=== PATIENT | male | born 1965 | race Two or more races ===

== ENCOUNTER 2016-10-09 05:02 | Inpatient (IN) | payer OTHER ==
[~2016-10-09] VITALS: Ht 182.9 cm; Wt 125.2 kg
[~2016-10-09 05:02] MED LIST: APIX5TAB PO; HYDR-3025 PO; Hydrocodone/Apap (10/325) PO
[2016-10-09] MEDS ORDERED: ASPIRIN 325 MG TAB PO STA (05:17)
[2016-10-09 06:15] LABS: BASOPHIL # 0.1 10^3/ul (0.0-0.1); BASOPHILS % 0.5 % (0.0-2.0); EOSINOPHILS # 0.2 10^3/ul (0.0-0.5); EOSINOPHILS % 2.6 % (0.0-7.0); HEMATOCRIT 42.4 % (42.0-52.0); HEMOGLOBIN 14.5 g/dl (14.0-18.0); LYMPHOCYTES # 2.2 10^3/ul (0.8-2.9); LYMPHOCYTES % 24.1 % (15.0-51.0); MEAN CORPUSCULAR HEMOGLOBIN 31.1 pg (29.0-33.0); MEAN CORPUSCULAR HGB CONC 34.2 g/dl (32.0-37.0); MEAN PLATELET VOLUME 10.2 fl (7.4-10.4); MONOCYTE # 0.8 10^3/ul (0.3-0.9); NEUTROPHIL # 5.8 10^3/ul (1.6-7.5); NEUTROPHILS % 63.4 % (39.0-77.0); PLATELET COUNT 233 10^3/UL (140-415); RED BLOOD COUNT 4.66 10^6/ul (4.70-6.10); RED CELL DISTRIBUTION WIDTH 12.1 % (11.5-14.5); WHITE BLOOD COUNT 9.1 10^3/ul (4.8-10.8)
[2016-10-09] MEDS ORDERED: ONDANSETRON 4 MG INJ IV STA ×2 (06:27→08:20)
[2016-10-09] MEDS ORDERED: HYDROmorphONE 1 MG/ML SYG IV STA ×3 (06:27→11:35)
[2016-10-09 06:34] LABS: INR 0.85; PARTIAL THROMBOPLASTIN TIME 27.5 Sec (25.0-35.0); PROTIME 11.6 Sec (12.2-14.2); PT RATIO 0.9
[2016-10-09 06:36] LABS: ANION GAP 15 (8-16); BLOOD UREA NITROGEN 21 mg/dl (7-20); CALCIUM 9.4 mg/dl (8.4-10.2); CARBON DIOXIDE 21 mmol/L (21-31); CHLORIDE 105 mmol/L (97-110); CREATININE 0.84 mg/dl (0.61-1.24); GLUCOSE 100 mg/dl (70-220); POTASSIUM 4.3 mmol/L (3.5-5.1); SODIUM 137 mmol/L (135-144)
[2016-10-09 06:48] LABS: B-TYPE NATRIURETIC PEPTIDE 39 PG/ML (0-125)
[2016-10-09 06:50] LABS: TROPONIN-I < 0.012 ng/ml (0.00-0.12)
[2016-10-09 06:52] VITALS: TEMP 98.1
[2016-10-09] MEDS ORDERED: IOHEXOL 100 ML ONE (07:21)
[2016-10-09] MEDS ORDERED: SOD CHLORIDE 0.9% 100 ML ONE (07:21)
--- NOTE | 2016-10-09 07:29 | RADRPT ---
PROCEDURE: US Lower extremity Venous. CLINICAL INDICATION: Right leg edema , history of DVT, shortness of breath, pulmonary embolus TECHNIQUE: Multiple sonographic images of the right lower extremity deep venous system was obtaine d utilizing grayscale, color-flow, compressive sonography and doppler imaging with augmentation. Th e images were reviewed on a PACS workstation. COMPARISON: None. FINDINGS: The right popliteal vein is not compressible, consistent with thrombosis. There is normal compressibility and flow within the right common femoral, femoral, posterior tibial, peroneal veins. RPTAT: AA IMPRESSION: Thrombosis of the right popliteal vein. .Chris Doherty MD, MD Date Time Electronically viewed and signed by .Chris Doherty MD, on 10/09/2016 07:29 .S/
[2016-10-09] MEDS ORDERED: ENOXAPARIN 60 MG/0.6 ML SYG SC ONE (07:30)
--- NOTE | 2016-10-09 07:56 | RADRPT ---
PROCEDURE: CTA Chest and pulmonary angiogram. CLINICAL INDICATION: Chest pain and shortness of breath. TECHNIQUE: CT scan of the chest and CT pulmonary angiogram was performed on a multidetector high-r esolution CT scanner. High-resolution thin slice coronal and sagittal imaging was obtained from the axial source images. 3-D volumetric rendered post processing was performed as well. The patient w as examined following the uncomplicated intravenous administration of 100 cc of Omnipaque-350. The i mages were reviewed on a PACS workstation. The total exam CTDI equals 70.42, and 20.02 and the total exam DLP equals 776.33 mGy-cm. One or more of the following dose reduction techniques were used: Automated exposure control. Adjustment of the mA and/or kV according to patient size. Use of iterative reconstruction technique. COMPARISON: No prior studies are available for comparison. FINDINGS: CT chest: The lungs are clear. No focal opacification, effusion, pneumothorax, edema, or nodules are seen. T he central tracheobronchial tree is clear. The mediastinum is unremarkable without evidence for mass or lymphadenopathy. The vascular structur es of the mediastinum are normal in course and caliber. The heart size is normal without pericardia l thickening or effusion. The axillary, subpectoral, and supraclavicular regions are unremarkable. Imaging obtained through the upper abdomen is equally unremarkable. The adrenal glands are symmetri melida normal. The surrounding chest wall is unremarkable. The osseous structures are remarkable fo r degenerative spondylosis of the spine. CT pulmonary angiogram: Multiple foci of thrombus is seen in bilateral pulmonary arteries. There is no CT evidence of right heart strain. The pulmonary arteries are normal in caliber and morphology. A call report was made to Dr. Keen at 10/09/2016 7:51:50 AM following completion of the examination . IMPRESSION: 1. Pulmonary emboli within the lobar, segmental and subsegmental branches of bilateral pulmonary ar teries. No CT evidence of right heart strain. 2. No acute infiltrates. RPTAT: EE .Alma Zapata MD, MD Date Time Electronically viewed and signed by .Alma Zapata MD, on 10/09/2016 07:55 .O/
--- NOTE | 2016-10-09 08:17 | ERA ---
ER Documentation Chief Complaint Date/Time DATE: 10/09/16 TIME: 08:14 Chief Complaint shortness of breath , right leg pain HPI This 51-year-old male with a history of DVT and pulmonary embolism status post knee surgery last year. Patient states 4 days ago he started getting right calf pain again having some intermittent mild shortness of breath and heart palpitations over the course of the past 4 days no chest pain. The patient says he came in because he was worried that he has another clot in his leg because it feels the same. The patient was taking Eliquis and stopped taking it 3 months ago. Pain in the calf is described as sharp and worse with movement. No fever cough ROS All systems reviewed and are negative except as per history of present illness. Medications Home Meds Reported Medications Hydrocodone Bit-Acetaminophen* (Vicodin* ES) 7.5-300 Mg Tablet, 1 TAB PO Q4H Y for PAIN, TAB 01/06/16 Discontinued Scripts Apixaban* (Eliquis*) 5 Mg Tablet, 5 MG PO BID for 90 Days, TAB Prov:JUSTEN ANDREWS 01/07/16 Apixaban* (Eliquis*) 5 Mg Tablet, 10 MG PO BID for 7 Days, TAB Prov:JUSTEN ANDREWS 01/07/16 [Hydrocodone/Apap (10/325)] 1 TAB TAB No Conflict Check, 1 TAB PO Q4H Y for SEVERE PAIN LEVEL 7-10, #30 Prov:JUSTEN ANDREWS 01/07/16 Allergies Allergies: Coded Allergies: No Known Allergy (Unverified , 10/09/16) PMhx/Soc History of Surgery: Yes (R leg surgery ) Anesthesia Reaction: Yes Hx Neurological Disorder: Yes Hx Respiratory Disorders: No Hx Cardiac Disorders: Yes Hx Psychiatric Problems: No Hx Miscellaneous Medical Probl: No Hx Alcohol Use: No Hx Substance Use: No Hx Tobacco Use: No Smoking Status: Never smoker FmHx Family History: No coronary disease Physical Exam Vitals Vital Signs Date Time Temp Pulse Resp B/P Pulse Ox O2 Delivery O2 Flow Rate FiO2 10/09/16 06:52 98.1 66 20 132/84 100 Room Air 10/09/16 05:28 98.1 65 20 120/101 100 Room Air 10/09/16 05:06 98.7 78 20 140/75 96 Physical Exam Const: Well-developed, well-nourished Head: Atraumatic, normocephalic Eyes: Normal Conjunctiva, PERRLA, EOMI, normal sclera, no nystagmus ENT: Normal External Ears, Nose and Mouth, moist mucus membranes. Neck: Full range of motion. No meningismus, no lymphadenopathy. Resp: Clear to auscultation bilaterally, no wheezing, rhonchi, rales Cardio: Regular rate and rhythm, no murmurs, S1 S2 present Abd: Soft, non tender x 4, non distended. Normal bowel sounds, no guarding or rebound, no pulsitile abdominal masses or bruits Skin: No petechiae or rashes, no ecchymosis , no maculopapular rash Back: No midline or flank tenderness Ext: No cyanosis, or edema, FROM x 4, normal inspection, very tender right calf positive Homans neurovascularly intact x 4 Neur: Awake and alert, STR 5/5 x 4, sensation intact x 4, no focal findings, cerebellum intact Psych: Normal Mood and Affect Result Diagram: 10/09/16 0530 10/09/16 0530 Results 24 hrs Laboratory Tests Test 10/09/16 05:30 White Blood Count 9.110^3/ul Red Blood Count 4.6610^6/ul Hemoglobin 14.5g/dl Hematocrit 42.4% Mean Corpuscular Volume 91.0fl Mean Corpuscular Hemoglobin 31.1pg Mean Corpuscular Hemoglobin Concent 34.2g/dl Red Cell Distribution Width 12.1% Platelet Count 54951^3/UL Mean Platelet Volume 10.2fl Neutrophils % 63.4% Lymphocytes % 24.1% Monocytes % 9.0% Eosinophils % 2.6% Basophils % 0.5% Nucleated Red Blood Cells % 0.0/100WBC Neutrophils # 5.810^3/ul Lymphocytes # 2.210^3/ul Monocytes # 0.810^3/ul Eosinophils # 0.210^3/ul Basophils # 0.110^3/ul Nucleated Red Blood Cells # 0.010^3/ul Prothrombin Time 11.6Sec Prothrombin Time Ratio 0.9 INR International Normalized Ratio 0.85 Activated Partial Thromboplast Time 27.5Sec Sodium Level 137mmol/L Potassium Level 4.3mmol/L Chloride Level 105mmol/L Carbon Dioxide Level 21mmol/L Anion Gap 15 Blood Urea Nitrogen 21mg/dl Creatinine 0.84mg/dl Glucose Level 100mg/dl Calcium Level 9.4mg/dl Troponin I < 0.012ng/ml B-Type Natriuretic Peptide 39PG/ML Current Medications Medications (Trade) Dose Ordered Sig/Emy Route PRN Reason Start Time Stop Time Status Last Admin Dose Admin Aspirin (Aspirin) 325 mg ONCE STAT PO 10/09/16 05:17 10/09/16 05:19 DC 10/09/16 05:51 Hydromorphone HCl (Dilaudid) 1 mg ONCE STAT IV 10/09/16 06:27 10/09/16 06:29 DC 10/09/16 06:52 Ondansetron HCl 4 mg 4 mg ONCE STAT IV 10/09/16 06:27 10/09/16 06:29 DC 10/09/16 06:52 Iohexol 100 ml @ ud STK-MED ONCE .ROUTE 10/09/16 07:21 10/09/16 07:22 DC Sodium Chloride (NS) 100 ml @ STK-MED ONCE .ROUTE 10/09/16 07:21 10/09/16 07:22 DC Enoxaparin Sodium (Lovenox) 130 mg ONCE ONCE SC 10/09/16 07:30 10/09/16 07:31 Cancel Enoxaparin Sodium (Lovenox) 100 mg ONCE SC 10/09/16 08:30 10/09/16 08:31 Enoxaparin Sodium (Lovenox) 30 mg ONCE ONCE SC 10/09/16 08:30 10/09/16 08:31 Procedures/MDM EKG: Rate/Rhythm: Normal Sinus Rhythm,NL intervals, Q-wave in lead III QRS, ST, QT: NORMAL MO, QRS, QT] Impression: NORMAL EKG PROCEDURE: US Lower extremity Venous. CLINICAL INDICATION: Right leg edema , history of DVT, shortness of breath, pulmonary embolus TECHNIQUE: Multiple sonographic images of the right lower extremity deep venous system was obtained utilizing grayscale, color-flow, compressive sonography and doppler imaging with augmentation. The images were reviewed on a PACS workstation. COMPARISON: None. FINDINGS: The right popliteal vein is not compressible, consistent with thrombosis. There is normal compressibility and flow within the right common femoral, femoral, posterior tibial, peroneal veins. RPTAT: AA IMPRESSION: Thrombosis of the right popliteal vein. .Chris Doherty MD, MD Date Time Electronically viewed and signed by .Chris Doherty MD, MD on 10/09/2016 07: 29 .S/ CC: KATELYN VERAS DO PROCEDURE: CTA Chest and pulmonary angiogram. CLINICAL INDICATION: Chest pain and shortness of breath. TECHNIQUE: CT scan of the chest and CT pulmonary angiogram was performed on a multidetector high-resolution CT scanner. High-resolution thin slice coronal and sagittal imaging was obtained from the axial source images. 3-D volumetric rendered post processing was performed as well. The patient was examined following the uncomplicated intravenous administration of 100 cc of Omnipaque- 350. The images were reviewed on a PACS workstation. The total exam CTDI equals 70.42, and 20.02 and the total exam DLP equals 776.33 mGy-cm. One or more of the following dose reduction techniques were used: Automated exposure control. Adjustment of the mA and/or kV according to patient size. Use of iterative reconstruction technique. COMPARISON: No prior studies are available for comparison. FINDINGS: CT chest: The lungs are clear. No focal opacification, effusion, pneumothorax, edema, or nodules are seen. The central tracheobronchial tree is clear. The mediastinum is unremarkable without evidence for mass or lymphadenopathy. The vascular structures of the mediastinum are normal in course and caliber. The heart size is normal without pericardial thickening or effusion. The axillary, subpectoral, and supraclavicular regions are unremarkable. Imaging obtained through the upper abdomen is equally unremarkable. The adrenal glands are symmetrically normal. The surrounding chest wall is unremarkable. The osseous structures are remarkable for degenerative spondylosis of the spine. CT pulmonary angiogram: Multiple foci of thrombus is seen in bilateral pulmonary arteries. There is no CT evidence of right heart strain. The pulmonary arteries are normal in caliber and morphology. A call report was made to Dr. Veras at 10/09/2016 7:51:50 AM following completion of the examination. IMPRESSION: 1. Pulmonary emboli within the lobar, segmental and subsegmental branches of bilateral pulmonary arteries. No CT evidence of right heart strain. 2. No acute infiltrates. RPTAT: EE .Alma Zapata MD, MD Date Time Electronically viewed and signed by .Alma Zapata MD, on 10/09/2016 07:55 .O/ CC: LIT MAYORGA DO Patient was given Lovenox and pain control. We will admit the patient for anticoagulation he likely needs to have an IVC filter placed Critical Care Time: 32 minutes Treatments/Evaluations: Close monitoring and treatment of unstable vital signs, cardiorespiratory, and neurologic status, while maintaining tight balance of fluid, respiratory, and cardiac interventions. This time includes discussing the case with the patient and the patient's family. This time does not include all procedures stated elsewhere in this record. This time also includes reviewing old records, labs and radiological studies. This time includes examining and re-examining the patient. Additionally, this time also includes arranging care with admitting and consulting physicians. Departure Diagnosis: Primary Impression: Bilateral pulmonary embolism Additional Impression: DVT (deep venous thrombosis) Qualified Code: I82.431 - Acute deep vein thrombosis (DVT) of popliteal vein of right lower extremity Condition: Stable KATELYN VERAS DO Oct 09, 2016 08:17
[2016-10-09] MEDS ORDERED: ENOXAPARIN 100 MG/ML SYG SC SCH (08:30)
[2016-10-09] MEDS ORDERED: ENOXAPARIN 30 MG/0.3 ML SYG SC ONE (08:30)
[2016-10-09] MEDS ORDERED: ACETAMINOPHEN 325 MG TAB PO PRN (10:00)
[2016-10-09] MEDS ORDERED: ONDANSETRON 4 MG INJ IV PRN (10:00)
[2016-10-09] MEDS ORDERED: RIVAROXABAN 15 MG TABLET PO SCH (12:30)
[2016-10-09 12:43] LABS: CREATINE KINASE 76 IU/L (23-200)
[2016-10-09 12:59] LABS: CK-MB 0.71 ng/ml (0.0-2.4); TROPONIN-I < 0.012 ng/ml (0.00-0.12)
--- NOTE | 2016-10-09 13:49 | HP ---
Date/Time of Note Date/Time of Note DATE: 10/09/16 TIME: 13:36 Assessment/Plan VTE Prophylaxis VTE Prophylaxis Intervention: other Lines/Catheters IV [facility] Peripheral IV Assessment/Plan Chief Complaint/Hosp Course This is a 51-year-old male with a history of DVT and PE in the setting of knee surgery who now presents again with recurrence of PE and DVT. He is hemodynamically stable without any evidence of right heart strain, shock, or hypoxia. - I counseled the patient on his need for lifelong anticoagulation given this is his second DVT/PE and in this case appears to be unprovoked. - Despite the heavy clot burden this is a relatively low risk pulmonary embolism given his lack of hemodynamic effects or hypoxia. I would prefer that the patient stay a day for monitoring but he is adamant that he would like to leave the hospital today. He is willing to take the risk. - He does have significant pain in his affected leg but he does not have signs of phlegmasia. - I will prescribe the patient a therapeutic course of Xarelto which I have encouraged him to take lifelong in discussion with his primary care provider. - I counseled him on his risk of bleeding and to avoid situations which may cause trauma - There is no indication for IVC filter in his case given there is no contraindication for therapeutic anticoagulation, HD stable, etc - Will prescribe a dose of Xanax for his significant anxiety Problems: HPI/ROS Admit Date/Time Admit Date/Time Hx of Present Illness Mr. Velasquez is a 51-year-old male with a history of provoked DVT in the setting of right knee surgery about 1 year ago who now comes in again with right leg swelling and shortness of breath. The patient developed a DVT of his right leg last year in the setting of knee surgery. He was treated with a 6 months course of Eliquis. He completed this therapy 3 months ago. He continues to have disabling knee pain and continues to follow with his orthopedist. He has received knee injections and even a sacral nerve injection for pain. Over the past few days he has developed worsening pain in his calf below his knee. He is also developed shortness of breath. These symptoms have been stable over the past few days. He came today because they were concerning for recurrence of his DVT and PE. In the emergency room he underwent a CTA which was positive for bilateral pulmonary embolism in lobar through subsegmental pulmonary arteries as well as a duplex which showed a right lower extremity popliteal DVT. He was given therapeutic dose Lovenox. When I saw him following these events he complains of pain in his right leg but he does not have any respiratory complaints at this time. He says that he is very anxious and stressed to be back in the hospital and says he very much wants to be discharged today. Denies recent immobility, etc. No other recent surgery or trauma. PMH/Family/Social Past Medical History Medical History: no pertinent history Past Surgical History Past Surgical Hx: other Family History Significant Family History: no pertinent family hx Social History Alcohol Use: none Smoking Status: Never smoker Drug Use: none Exam/Review of Systems Vital Signs Vitals Vital Signs Date Time Temp Pulse Resp B/P Pulse Ox O2 Delivery O2 Flow Rate FiO2 10/09/16 11:51 62 23 103/78 95 Nasal Cannula 4.0 10/09/16 06:52 98.1 Exam Exam Appears well, comfortable, pleasant His heart sounds are normal his neck veins are flat. His respirations are nonlabored and pulmonary auscultation is clear. His abdomen is obese soft and nontender. His right calf is more swollen than his left is slightly tender to touch. There is no pitting edema he has excellent DP and AT pulses in his right leg. CT-A: Bilateral lobar -> subsegmental PEs. No evidence of right heart strain Labs Result Diagram: 10/09/1652910/09/1630 KIRT MARTE MD Oct 09, 2016 13:49
[2016-10-09] MEDS ORDERED: ALPRAZOLAM 0.25 MG TAB PO ONE (14:00)
[2016-10-09 14:38] VITALS: BP 126/82; RESP 20
[2016-10-09 14:49] VITALS: Ht 182.9 cm; Wt 125.2 kg
[2016-10-09 14:54] VITALS: PULSE 52
[2016-10-09] MEDS ORDERED: RIVA20TA PO (16:11)
[2016-10-09] MEDS ORDERED: RIVA15TA PO (16:11)
[2016-10-09 16:20] VITALS: PULSE 53
--- NOTE | 2016-10-09 17:29 | DS ---
Date/Time of Note Date/Time of Note DATE: 10/09/16 TIME: 17:29 Discharge Summary Admission/Discharge Info Admit Date/Time Oct 09, 2016 at 09:43 Discharge Date/Time Hx of Present Illness Mr. Velasquez is a 51-year-old male with a history of provoked DVT in the setting of right knee surgery about 1 year ago who now comes in again with right leg swelling and shortness of breath. The patient developed a DVT of his right leg last year in the setting of knee surgery. He was treated with a 6 months course of Eliquis. He completed this therapy 3 months ago. He continues to have disabling knee pain and continues to follow with his orthopedist. He has received knee injections and even a sacral nerve injection for pain. Over the past few days he has developed worsening pain in his calf below his knee. He is also developed shortness of breath. These symptoms have been stable over the past few days. He came today because they were concerning for recurrence of his DVT and PE. In the emergency room he underwent a CTA which was positive for bilateral pulmonary embolism in lobar through subsegmental pulmonary arteries as well as a duplex which showed a right lower extremity popliteal DVT. He was given therapeutic dose Lovenox. When I saw him following these events he complains of pain in his right leg but he does not have any respiratory complaints at this time. He says that he is very anxious and stressed to be back in the hospital and says he very much wants to be discharged today. Denies recent immobility, etc. No other recent surgery or trauma. Hospital Course Patient started on Xarelto for AC Colon well, vitals stable, no hypoxia Patient will continue with Xarelot and was counseled on the need for lifelong AC , to be discussed with his primary care provider Home Meds Active Scripts Rivaroxaban* (Xarelto*) 20 Mg Tablet, 20 MG PO WITH DINNER for 90 Days, #90 TAB Prov:KIRT MARTE MD 10/09/16 Rivaroxaban* (Xarelto*) 15 Mg Tablet, 15 MG PO BID WITH MEALS for 21 Days, #42 TAB Take 15 mg twice daily for 21 days. Then take 20 mg daily indefinitely Prov:KIRT MARTE MD 10/09/16 Reported Medications Hydrocodone Bit-Acetaminophen* (Vicodin* ES) 7.5-300 Mg Tablet, 1 TAB PO Q4H Y for PAIN, TAB 01/06/16 Discontinued Scripts Apixaban* (Eliquis*) 5 Mg Tablet, 5 MG PO BID for 90 Days, TAB Prov:JUSTEN ANDREWS 01/07/16 Apixaban* (Eliquis*) 5 Mg Tablet, 10 MG PO BID for 7 Days, TAB Prov:JUSTEN ANDREWS 01/07/16 [Hydrocodone/Apap ()] 1 TAB TAB No Conflict Check, 1 TAB PO Q4H Y for SEVERE PAIN LEVEL 7-10, #30 Prov:JUSTEN ANDREWS 01/07/16 Primary Care Provider Francisca Cross Pending Labs Laboratory Tests Test 10/09/16 05:30 10/09/16 12:15 White Blood Count 9.110^3/ul (4.8-10.8) Red Blood Count 4.6610^6/ul (4.70-6.10) Hemoglobin 14.5g/dl (14.0-18.0) Hematocrit 42.4% (42.0-52.0) Mean Corpuscular Volume 91.0fl (82.0-101.0) Mean Corpuscular Hemoglobin 31.1pg (29.0-33.0) Mean Corpuscular Hemoglobin Concent 34.2g/dl (32.0-37.0) Red Cell Distribution Width 12.1% (11.5-14.5) Platelet Count 64953^3/UL (140-415) Mean Platelet Volume 10.2fl (7.4-10.4) Neutrophils % 63.4% (39.0-77.0) Lymphocytes % 24.1% (15.0-51.0) Monocytes % 9.0% (0.0-11.0) Eosinophils % 2.6% (0.0-7.0) Basophils % 0.5% (0.0-2.0) Nucleated Red Blood Cells % 0.0/100WBC (0.0-0.0) Neutrophils # 5.810^3/ul (1.6-7.5) Lymphocytes # 2.210^3/ul (0.8-2.9) Monocytes # 0.810^3/ul (0.3-0.9) Eosinophils # 0.210^3/ul (0.0-0.5) Basophils # 0.110^3/ul (0.0-0.1) Nucleated Red Blood Cells # 0.010^3/ul (0.0-0.0) Prothrombin Time 11.6Sec (12.2-14.2) Prothrombin Time Ratio 0.9 INR International Normalized Ratio 0.85 Activated Partial Thromboplast Time 27.5Sec (25.0-35.0) Sodium Level 137mmol/L (135-144) Potassium Level 4.3mmol/L (3.5-5.1) Chloride Level 105mmol/L (97-110) Carbon Dioxide Level 21mmol/L (21-31) Anion Gap 15 (8-16) Blood Urea Nitrogen 21mg/dl (7-20) Creatinine 0.84mg/dl (0.61-1.24) Glucose Level 100mg/dl (70-220) Calcium Level 9.4mg/dl (8.4-10.2) Troponin I < 0.012ng/ml (0.00-0.12) < 0.012ng/ml (0.00-0.12) B-Type Natriuretic Peptide 39PG/ML (0-125) Creatine Kinase 76IU/L (23-200) Creatine Kinase Index 0.9 Creatinine Kinase MB (Mass) 0.71ng/ml (0.0-2.4) KIRT MARTE MD Oct 09, 2016 17:29
== END 2016-10-09 17:35 | disposition home or self-care (01) | DRG 300 ==
LOC: E/R 05:02 → TEL 09:43
PROVIDERS: ADMIT Internal Medicine; ATTEND Internal Medicine
DX: I74.3 Embolism and thrombosis of arteries of the lower extremities (principal); I82.431 Acute embolism and thrombosis of right popliteal vein
CPT/HCPCS: 36415; 71275; 80048; 82550; 82553; 83880; 84484; 85025; 85610; 85730; 93005; 93971; 96372; 96374; 96375; 96376; J1170; J1650; J2405; Q9967